=== PATIENT | female | born 1940 | race Caucasian/White ===

== ENCOUNTER 2018-02-25 13:08 | Emergency (ER) | payer MEDICARE ==
--- NOTE | 2018-02-25 13:16 | ER Report ---
History and Physical Time Seen By MD: 13:15 HPI/ROS CHIEF COMPLAINT: Syncope, brief period of unresponsiveness HISTORY OF PRESENT ILLNESS: Patient is a 78-year-old female here with reports of a brief period of unresponsiveness while at home in the bathroom sitting down. Patient had complete resolution of symptoms by time that EMS had arrived. Patient has no prior history of strokes. Transient ischemic attacks. Denies recent trauma. Patient was healthy at baseline and is currently well-appearing, hemodynamically stable in no acute distress. Denies prior episodes of syncope. Patient is alert and oriented at time of evaluation. REVIEW OF SYSTEMS: Constitutional: No fever, no chills. Eyes: No discharge. ENT: No sore throat. Cardiovascular: No chest pain, no palpitations. Respiratory: No cough, no shortness of breath. Gastrointestinal: No abdominal pain, no vomiting. Genitourinary: No hematuria. Musculoskeletal: No back pain. Skin: No rashes. Neurological: No headache, + brief syncopal episode. Allergies: Coded Allergies: lisinopril (Verified Allergy, Severe, HIVES, 02/25/18) or any of the prils as it makes pt break out in choco [place] (Verified Allergy, Intermediate, RASH, 02/25/18) Home Meds Reported Medications Amlodipine Besylate (AMLODIPINE BESYLATE) 5 Mg Tablet, 1 TAB PO QDAY, TAB 02/25/18 Metoprolol Succinate (METOPROLOL SUCCINATE) 50 Mg Tab.er.24h, 2 TAB PO QDAY, TAB 02/25/18 Gabapentin (GABAPENTIN) 300 Mg Capsule, 300 MG PO HS, CAPSULE 02/25/18 Gabapentin (GABAPENTIN) 300 Mg Capsule, 100 MG PO BID, CAPSULE 02/25/18 Levothyroxine Sodium (LEVOTHYROXINE SODIUM) 50 Mcg Tablet, 25 MCG PO QDAY, TAB 02/25/18 Constitutional Vital Sign - Last 24 Hours 02/25/18 02/25/18 02/25/18 02/25/18 13:08 13:20 13:21 13:30 Temp 98.5 Pulse 78 77 Resp 14 14 B/P (MAP) 165/103 (123) 165/103 168/100 (122) Pulse Ox 87 88 O2 Delivery Room Air Room Air 02/25/18 02/25/18 02/25/18 02/25/18 13:38 13:46 14:00 14:30 Pulse 70 Resp 17 B/P (MAP) 160/90 (113) 154/91 (112) Pulse Ox 97 O2 Delivery Nasal Cannula O2 Flow Rate 2 2.0 02/25/18 02/25/18 02/25/18 14:35 15:15 15:26 Pulse 67 66 Resp 14 B/P (MAP) 144/93 (110) Pulse Ox 97 90 O2 Delivery Nasal Cannula Room Air O2 Flow Rate 2 Physical Exam General Appearance: The patient is alert, has no immediate need for airway protection and no signs of toxicity. NAD Eyes: Pupils equal and round no pallor or injection. ENT, Mouth: Mucous membranes are moist. Respiratory: There are no retractions, lungs are clear to auscultation. Cardiovascular: Regular rate and rhythm. Gastrointestinal: Abdomen is soft and non tender, no masses, bowel sounds normal. Neurological: No focal neuro deficits Skin: Warm and dry, no rashes. Musculoskeletal: Neck is supple non tender. Extremities are nontender, nonswollen and have full range of motion. DIFFERENTIAL DIAGNOSIS: After history and physical exam differential diagnosis was considered for dehydration, orthostasis, stroke, seizure, intracranial bleed Medical Decision Making Data Points Result Diagram: 02/25/18 1345 02/25/18 1345 Laboratory Hematology Test 02/25/18 13:16 02/25/18 13:45 Urine Color Yellow Urine Clarity Clear Urine pH 7.0 pH (4.8-9.5) Urine Specific [place] 1.006 Urine Protein 30 mg/dL (NEGATIVE) Urine Glucose (UA) Negative mg/dL (NEGATIVE) Urine Ketones Negative mg/dL (NEGATIVE) Urine Blood Negative (NEGATIVE) Urine Nitrite Negative (NEGATIVE) Urine Bilirubin Negative (NEGATIVE) Urine Urobilinogen Negative mg/dL (0.2-1.9) Urine Leukocyte Esterase Trace (NEGATIVE) Urine RBC None /HPF (0-2/HPF) Urine WBC 1 /HPF (0-5/HPF) Urine Squamous Epithelial Cells Few /LPF (</=FEW) Urine Bacteria Negative /HPF (NONE-FEW) Urine Mucus None /HPF (NONE-FEW) Urine Opiates Screen Negative Urine Barbiturates Screen Negative Ur Tricyclic Antidepressants Screen Negative Urine Phencyclidine Screen Negative Urine Amphetamines Screen Negative Urine Benzodiazepines Screen Negative Urine Cocaine Screen Negative Urine Cannabinoids Screen Negative Red Blood Count 3.91 M/uL (4.17-5.56) Mean Corpuscular Volume 95.7 fL (80.0-96.0) Mean Corpuscular Hemoglobin 32.3 pg (26.0-33.0) Mean Corpuscular Hemoglobin Concent 33.8 g/dL (32.0-36.0) Red Cell Distribution Width 14.2 % (11.5-14.5) Mean Platelet Volume 7.1 fL (7.2-11.1) Neutrophils (%) (Auto) 63.5 % (39.4-72.5) Lymphocytes (%) (Auto) 28.2 % (17.6-49.6) Monocytes (%) (Auto) 7.3 % (4.1-12.4) Eosinophils (%) (Auto) 0.3 % (0.4-6.7) Basophils (%) (Auto) 0.7 % (0.3-1.4) Nucleated RBC Relative Count (auto) 0.0 /100WBC Neutrophils # (Auto) 3.6 K/uL (2.0-7.4) Lymphocytes # (Auto) 1.6 K/uL (1.3-3.6) Monocytes # (Auto) 0.4 K/uL (0.3-1.0) Eosinophils # (Auto) 0.0 K/uL (0.0-0.5) Basophils # (Auto) 0.0 K/uL (0.0-0.1) Nucleated RBC Absolute Count (auto) 0.00 K/uL Peripheral Blood Smear No Y/N Sodium Level 129 mmol/L (137-145) Potassium Level 4.2 mmol/L (3.5-5.0) Chloride Level 93 mmol/L (98-107) Carbon Dioxide Level 25 mmol/L (22-31) Blood Urea Nitrogen 15 mg/dl (7-18) Creatinine 1.10 mg/dl (0.52-1.04) Glomerular Filtration Rate Calc 48.0 Random Glucose 106 mg/dl (75-110) Calcium Level 9.3 mg/dl (8.4-10.2) Total Bilirubin 0.4 mg/dl (0.2-1.3) Aspartate Amino Transf (AST/SGOT) 36 U/L (0-35) Alanine Aminotransferase (ALT/SGPT) 33 U/L (0-56) Alkaline Phosphatase 101 U/L (0-126) Ammonia < 9 UMOL/L (9-33) Troponin I < 0.012 ng/ml Total Protein 7.5 g/dl (6.3-8.2) Albumin 3.7 g/dl (3.5-5.0) Thyroid Stimulating Hormone (TSH) 4.63 uIU/ml (0.46-4.68) Serum Alcohol < 10 mg/dl Chemistry Test 02/25/18 13:16 02/25/18 13:45 Urine Color Yellow Urine Clarity Clear Urine pH 7.0 pH (4.8-9.5) Urine Specific [place] 1.006 Urine Protein 30 mg/dL (NEGATIVE) Urine Glucose (UA) Negative mg/dL (NEGATIVE) Urine Ketones Negative mg/dL (NEGATIVE) Urine Blood Negative (NEGATIVE) Urine Nitrite Negative (NEGATIVE) Urine Bilirubin Negative (NEGATIVE) Urine Urobilinogen Negative mg/dL (0.2-1.9) Urine Leukocyte Esterase Trace (NEGATIVE) Urine RBC None /HPF (0-2/HPF) Urine WBC 1 /HPF (0-5/HPF) Urine Squamous Epithelial Cells Few /LPF (</=FEW) Urine Bacteria Negative /HPF (NONE-FEW) Urine Mucus None /HPF (NONE-FEW) Urine Opiates Screen Negative Urine Barbiturates Screen Negative Ur Tricyclic Antidepressants Screen Negative Urine Phencyclidine Screen Negative Urine Amphetamines Screen Negative Urine Benzodiazepines Screen Negative Urine Cocaine Screen Negative Urine Cannabinoids Screen Negative White Blood Count 5.7 k/uL (4.5-11.0) Red Blood Count 3.91 M/uL (4.17-5.56) Hemoglobin 12.6 g/dL (12.0-16.0) Hematocrit 37.4 % (34.0-47.0) Mean Corpuscular Volume 95.7 fL (80.0-96.0) Mean Corpuscular Hemoglobin 32.3 pg (26.0-33.0) Mean Corpuscular Hemoglobin Concent 33.8 g/dL (32.0-36.0) Red Cell Distribution Width 14.2 % (11.5-14.5) Platelet Count 249 K/uL (150-450) Mean Platelet Volume 7.1 fL (7.2-11.1) Neutrophils (%) (Auto) 63.5 % (39.4-72.5) Lymphocytes (%) (Auto) 28.2 % (17.6-49.6) Monocytes (%) (Auto) 7.3 % (4.1-12.4) Eosinophils (%) (Auto) 0.3 % (0.4-6.7) Basophils (%) (Auto) 0.7 % (0.3-1.4) Nucleated RBC Relative Count (auto) 0.0 /100WBC Neutrophils # (Auto) 3.6 K/uL (2.0-7.4) Lymphocytes # (Auto) 1.6 K/uL (1.3-3.6) Monocytes # (Auto) 0.4 K/uL (0.3-1.0) Eosinophils # (Auto) 0.0 K/uL (0.0-0.5) Basophils # (Auto) 0.0 K/uL (0.0-0.1) Nucleated RBC Absolute Count (auto) 0.00 K/uL Peripheral Blood Smear No Y/N Glomerular Filtration Rate Calc 48.0 Calcium Level 9.3 mg/dl (8.4-10.2) Total Bilirubin 0.4 mg/dl (0.2-1.3) Aspartate Amino Transf (AST/SGOT) 36 U/L (0-35) Alanine Aminotransferase (ALT/SGPT) 33 U/L (0-56) Alkaline Phosphatase 101 U/L (0-126) Ammonia < 9 UMOL/L (9-33) Troponin I < 0.012 ng/ml Total Protein 7.5 g/dl (6.3-8.2) Albumin 3.7 g/dl (3.5-5.0) Thyroid Stimulating Hormone (TSH) 4.63 uIU/ml (0.46-4.68) Serum Alcohol < 10 mg/dl Toxicology Test 02/25/18 13:16 02/25/18 13:45 Urine Opiates Screen Negative Urine Barbiturates Screen Negative Ur Tricyclic Antidepressants Screen Negative Urine Phencyclidine Screen Negative Urine Amphetamines Screen Negative Urine Benzodiazepines Screen Negative Urine Cocaine Screen Negative Urine Cannabinoids Screen Negative Serum Alcohol < 10 mg/dl Urinalysis Test 02/25/18 13:16 Urine Color Yellow Urine Clarity Clear Urine pH 7.0 pH (4.8-9.5) Urine Specific [place] 1.006 Urine Protein 30 mg/dL (NEGATIVE) Urine Glucose (UA) Negative mg/dL (NEGATIVE) Urine Ketones Negative mg/dL (NEGATIVE) Urine Blood Negative (NEGATIVE) Urine Nitrite Negative (NEGATIVE) Urine Bilirubin Negative (NEGATIVE) Urine Urobilinogen Negative mg/dL (0.2-1.9) Urine Leukocyte Esterase Trace (NEGATIVE) Urine RBC None /HPF (0-2/HPF) Urine WBC 1 /HPF (0-5/HPF) Urine Squamous Epithelial Cells Few /LPF (</=FEW) Urine Bacteria Negative /HPF (NONE-FEW) Urine Mucus None /HPF (NONE-FEW) EKG/Imaging EKG Interpretation 12 lead EKG: Normal sinus rhythm, rate 69, QTC 428, no ischemic changes or arrhythmias Rhythm: normal sinus rhythm [place]: normal QRS: normal ST segments: normal ` Monitor Interpretation: Normal Sinus Rhythm Imaging CCESSION #: [id number] Exam type: CHEST PA AND LAT History: SOB, desat Comparison: None. Findings: There is hyperinflation of the lung edouard. There is no evidence of focal infiltrates, pleural effusions upon edema. The cardiac silhouette is mild to moderately enlarged. There is marked ectasia of the thoracic aorta. Hiatal hernia projects in the retrocardiac space. There is an exaggeration of normal thoracic kyphosis secondary to multiple moderate to severe compression fractures in the mid to lower thoracic spine. IMPRESSION: 1. Hyperinflation lung edouard although no evidence of acute pulmonary consolidation Hiatal hernia Multiple compression fractures in the mid to lower thoracic spine Cardiomegaly and ectasia of the thoracic aorta HEAD W/O CONTRAST HISTORY: Altered mental status, syncope COMPARISON STUDIES: none TECHNIQUE: Contiguous axial images were obtained from the skull base to the vertex. One of the following dose optimization techniques was utilized in the performance of this exam: Automated exposure control; adjustment of the mA and/or kV according to the patient's size; or use of an iterative reconstruction technique. Specific details can be referenced in the facility's radiology CT exam operational policy. FINDINGS: Hemorrhage: Negative Ventricles / sulci / fissures: Negative Masses / midline shift: Negative White matter: Significant confluent periventricular white matter low density is likely in the basis of small vessel disease. Hypodensity in the left periventricular white matter may represent a small old white matter infarct. Ledesma-white differentiation: Negative Extra-axial spaces: Significant vascular calcification is noted Bones and skull base: Nasal septum is deviated towards the left. Visualized mastoid air cells / paranasal sinuses: Negative IMPRESSION: 1. No evidence for acute intracranial hemorrhage, mass or acute ischemia. 2. Significant confluent periventricular white matter low density is likely on the basis of small vessel disease. ED Course/Re-evaluation ED Course Patient is a 78-year-old female here with complaints of a brief syncopal episode and previous episode of unresponsiveness while at home earlier today prompting EMS evaluation. Patient was unresponsive for a brief period of time however had regained consciousness and was fully responsive at time of EMS arrival. Patient is well-appearing at time of evaluation in no acute distress. She is moving all extremities with equal strength and equal sensation. There are no cranial nerve deficit at this time of evaluation. CT scan of the head showed no intracranial pathology or bleeding. Chest x-ray showed no acute intrathoracic pathology. Patient labs were remarkable for sodium level of 129. I attempted to contact the patient's primary care physician however was unable to get through to the office. I discussed these findings with the patient and advised her to follow up closely tomorrow with her PCP to compared to prior lab findings, the last of which were completed last month per patient report. Otherwise patient was noted to have labs consistent with dehydration including urinalysis with ketones, mildly elevated creatinine, unclear what baseline is however patient's physical exam was consistent with mild dehydration. Patient was tolerating oral intake and agreed to increase fluid intake in the interim until she is able follow-up with her PCP. It is unclear what caused the patient's syncopal episode however current lab findings and imaging findings and physical exam findings were inconclusive at this time. Patient was advised to follow-up in the next day with her PCP in order to discuss further evaluation, possible repeat labs to follow her electrolytes and kidney function, perhaps adding aspirin to her daily regimen. Patient was ambulated prior to discharge and oxygen levels were satisfactory. Patient was in no acute distress, alert and oriented and hemodynamically stable prior to discharge. Decision to Disposition Date: Feb 25, 2018 Decision to Disposition Time: 15:55 Depart Departure Latest Vital Signs Vital Signs Date Time Temp Pulse Resp B/P (MAP) Pulse Ox O2 Delivery O2 Flow Rate FiO2 02/25/18 15:26 66 90 Room Air 02/25/18 15:15 144/93 (110) 02/25/18 14:35 14 2 02/25/18 13:21 98.5 Impression: Primary Impression: Syncope Condition: Improved Disposition: HOME OR SELF-CARE Patient Instructions: Syncope (ED) Additional Instructions: Please follow up closely with her family doctor. You are noted to have low sodium levels. The CT scan of your head showed no acute findings. Chest x-ray was unremarkable. Please return immediately if you develop recurrent episodes of loss of consciousness, severe headaches, fevers, chest pain, shortness breath, abdominal pain, nausea, vomiting. AMAURY ST DO Feb 25, 2018 13:16
[2018-02-25] MEDS ORDERED: GABA-549 PO ×2 (13:18→13:21)
[2018-02-25] MEDS ORDERED: LEVO50TA86 PO (13:18)
[2018-02-25] MEDS ORDERED: METO50TA19 PO (13:21)
[2018-02-25] MEDS ORDERED: AMLO-111 PO (13:21)
--- NOTE | 2018-02-25 14:03 | EKG ---
FACILITY: [facility] - [place] PATIENT NAME: ALEX WILLIAM : [id number] MR: [id number] V: [id number] EXAM DATE: ORDERING PHYSICIAN: AMAURY ST TECHNOLOGIST: LALIT Test Reason : ALOC Blood Pressure : / mmHG Vent. Rate : 069 BPM Atrial Rate : 069 BPM P-R Int : 170 ms QRS Dur : 086 ms QT Int : 400 ms P-R-T Axes : 008 -21 014 degrees QTc Int : 428 ms Normal sinus rhythm Normal ECG No previous ECGs available Confirmed by ANDIE PAN ([id number]) on 02/25/2018 2:19:38 PM Referred By: ALMA ROSA Confirmed By:ANDIE PAN
[2018-02-25 14:05] LABS: PLATELET COUNT, AUTOMATED 249 K/uL (150-450)
--- NOTE | 2018-02-25 14:38 | RADIOLOGY IMAGING REPORT ---
FACILITY: [facility] - [place] PATIENT NAME: Evie Moy : 1940 MR: [id number] V: [id number] EXAM DATE: ORDERING PHYSICIAN: AMAURY ST TECHNOLOGIST: Location: [facility] Patient: Evie Moy : 1940 Visit/Account:[id number] Date of Sevice: 02/25/2018 HEAD W/O CONTRAST HISTORY: Altered mental status, syncope COMPARISON STUDIES: none TECHNIQUE: Contiguous axial images were obtained from the skull base to the vertex. One of the following dose optimization techniques was utilized in the performance of this exam: Autom ated exposure control; adjustment of the mA and/or kV according to the patient's size; or use of an i terative reconstruction technique. Specific details can be referenced in the facility's radiology C T exam operational policy. FINDINGS: Hemorrhage: Negative Ventricles / sulci / fissures: Negative Masses / midline shift: Negative White matter: Significant confluent periventricular white matter low density is likely in the basis o f small vessel disease. Hypodensity in the left periventricular white matter may represent a small o ld white matter infarct. Ledesma-white differentiation: Negative Extra-axial spaces: Significant vascular calcification is noted Bones and skull base: Nasal septum is deviated towards the left. Visualized mastoid air cells / paranasal sinuses: Negative IMPRESSION: 1. No evidence for acute intracranial hemorrhage, mass or acute ischemia. 2. Significant confluent periventricular white matter low density is likely on the basis of small ve ssel disease. Report Dictated By: Carlitos Ernandez MD at 02/25/2018 2:29 PM Report E-Signed By: Carlitos Ernandez MD at 02/25/2018 2:32 PM WSN:[email or web address]
[2018-02-25 15:15] VITALS: BP 144/93
--- NOTE | 2018-02-25 15:16 | RADIOLOGY IMAGING REPORT ---
FACILITY: [facility] - [place] PATIENT NAME: Evie Moy : 1940 MR: [id number] V: [id number] EXAM DATE: ORDERING PHYSICIAN: AMAURY ST TECHNOLOGIST: Location: [facility] Patient: Evie Moy : 1940 Visit/Account:[id number] Date of Sevice: 02/25/2018 Exam type: CHEST PA AND LAT History: SOB, desat Comparison: None. Findings: There is hyperinflation of the lung edouard. There is no evidence of focal infiltrates, pleural effus ions upon edema. The cardiac silhouette is mild to moderately enlarged. There is marked ectasia of the thoracic aorta. Hiatal hernia projects in the retrocardiac space. There is an exaggeration of n ormal thoracic kyphosis secondary to multiple moderate to severe compression fractures in the mid to lower thoracic spine. IMPRESSION: 1. Hyperinflation lung edouard although no evidence of acute pulmonary consolidation Hiatal hernia Multiple compression fractures in the mid to lower thoracic spine Cardiomegaly and ectasia of the thoracic aorta Report Dictated By: Sydney Watters MD at 02/25/2018 3:11 PM Report E-Signed By: Sydney Watters MD at 02/25/2018 3:12 PM WSN:[email or web address]
== END 2018-02-25 16:24 | disposition home or self-care (01) ==
LOC: ER 13:19
DX: R55 Syncope and collapse (principal); R79.89 Other specified abnormal findings of blood chemistry
CPT/HCPCS: 36415; 70450; 71046; 80305; 81001; 82140; 84443; 84484; 85025; 93005; 99284; G0480; 80320; 82040; 82247; 82310; 82374; 82435; 82565; 82947; 84075; 84132; 84155; 84295; 84450; 84460; 84520

== ENCOUNTER → 2018-03-11 | Outpatient (CLI) | payer MEDICARE ==
[~2018-03-11] MED LIST: AMLO-111 PO; GABA-549 PO; LEVO50TA86 PO; METO50TA19 PO
--- NOTE | 2018-03-11 14:22 | RADIOLOGY IMAGING REPORT ---
FACILITY: [facility] PATIENT NAME: Evie Moy : 1940 MR: [id number] V: [id number] EXAM DATE: ORDERING PHYSICIAN: ADE CHAN TECHNOLOGIST: Location: [facility] - [place] Patient: Evie Moy : 1940 Visit/Account:[id number] Date of Sevice: 03/11/2018 Carotid ultrasound Indication: Syncope Comparison:None available Findings: On the right : Peak systolic velocity of the right common carotid artery is 98 cm/s Peak systolic velocity of the right internal carotid artery is 80, 75 and 84 cm/s in the proximal, mi d and distal portion respectively. Grayscale images demonstrate mild, nonhemodynamically significant disease carotid bulb. Anterior calcification does somewhat limited visualization due to posterior s hadowing. Waveform morphology just distal to this region demonstrates no significant blunting of the systolic acceleration curve. There is normal antegrade flow of the right vertebral artery. The right ICA/CCA ratio is 0.9 On the left: Peak systolic velocity of the left common carotid artery is 99 cm/s Peak systolic velocity of the left internal carotid artery is 57, 91 and 96 cm/s in the proximal, mid and distal portion respectively. Grayscale images demonstrate mild posterior plaque left carotid bu lb. Waveform morphology in the proximal internal carotid artery has mild blunting of the systolic ac celeration curve. There is normal antegrade flow of the left vertebral artery. The left ICA/CCA ratio is 1.0 IMPRESSION: 1. There is mild atherosclerotic disease within the carotid bulbs bilaterally, right greater than le ft. By SRU criteria, there is less than 50% stenosis in the bilateral internal carotid arteries. Report Dictated By: Feliciano Martin MD at 03/11/2018 1:51 PM Report E-Signed By: Feliciano Martin MD at 03/11/2018 2:18 PM WSN:[email or web address]
== END ==
LOC: US 09:27
PROVIDERS: ATTEND Family Medicine
DX: I25.10 Atherosclerotic heart disease of native coronary artery without angina pectoris (principal); R55 Syncope and collapse
CPT/HCPCS: 93880